=== PATIENT | female | born 1970 | race Caucasian/White ===

== ENCOUNTER 2023-09-05 22:54 | Emergency (ER) | payer BC, SELFPAY ==
[2023-09-05] MEDS ORDERED: ASPIRIN 81 MG CHEWABLE TABLET ONE (23:33)
[2023-09-05 23:53] LABS: Absolute Lymphocytes (CBC) 2.7 K/uL (0.7-4.9); Hematocrit 45.2 % (36.0-45.0); Lymphocytes % 34.7 % (15.3-44.8); MPV 8.7 fL (7.6-11.3); Platelets 159 thou/uL (152-406); Protime INR 1.04; RBC Red Blood Cell Count 5.02 M/uL (3.86-4.86)
[2023-09-05 23:57] LABS: ALT/SGPT 94 U/L (13-56); AST/SGOT 50 U/L (15-37); Albumin 3.4 g/dL (3.4-5.0); Alkaline Phosphatase 76 U/L (45-117); BUN Blood Urea Nitrogen 14 mg/dL (7-18); Bicarbonate 25 mEq/L (21-32); Bilirubin Total 0.3 mg/dL (0.2-1.0); Glomerular Filtration Rate 90 ml/min (=/>90); Glucose Level 144 mg/dL (74-106); Magnesium 2.3 mg/dL (1.6-2.4); NT PRO-BNP 20 pg/mL (<125); Potassium 3.4 mEq/L (3.5-5.1); Protein, Total 7.5 g/dL (6.4-8.2); Sodium Level 139 mEq/L (136-145); Troponin High Sensitivity 5.1 pg/mL (<58.9)
[2023-09-05 23:58] LABS: Bilirubin Direct < 0.1 mg/dL (0-0.2); Bilirubin Indirect, Calculated ND mg/dL (0.2-0.8)
--- NOTE | 2023-09-06 05:52 | EDPHYS ---
Physician Documentation [facility] Name: Elva Espitia Age: 53 yrs Sex: Female : 1970 Arrival Date: 09/05/2023 Time: 22:54 Bed 2 Private MD: ED Physician Oleg Lazcano HPI: 09/05 23:00 This 53 yrs old Female presents to ER via Unassigned with complaints of Chest Pain. cp 23:00 The patient or guardian reports chest pain that is located primarily in the anterior cp chest wall, bilaterally. 23:00 Onset: 45 minute(s) ago. The pain radiates to the left arm. cp Historical: - Allergies: 23:12 No Known Allergies; jb4 - PMHx: 23:12 Asthma; jb4 - PSHx: 23:12 Partial Histerectomy; jb4 - Immunization history:: Adult Immunizations not up to date. - Social history:: Smoking status: Patient reports the use of cigarette tobacco products, smokes one-half pack cigarettes per day, Patient uses alcohol, occasionally. ROS: 23:05 Constitutional: Negative for body aches, chills, fever, poor PO intake, cp 23:05 Cardiovascular: Positive for chest pain, cp 23:05 Respiratory: Negative for cough, shortness of breath, wheezing, cp 23:05 Constitutional: Negative for fever, chills, and weight loss, cp Exam: 23:08 ECG was reviewed by the Attending Physician. cp 23:10 Constitutional: The patient appears in no acute distress, alert, awake, cp non-diaphoretic, non-toxic, well developed, well nourished, overweight 23:10 Head/Face: Normocephalic, atraumatic. cp 23:10 Eyes: Periorbital structures: appear normal, Conjunctiva: normal, no exudate, no injection, Sclera: no appreciated abnormality, Lids and lashes: appear normal, bilaterally, 23:10 ENT: External ear(s): are unremarkable, Nose: is normal, Mouth: Lips: moist, Oral mucosa: pink and intact, moist, Posterior pharynx: Airway: no evidence of obstruction, patent, 23:10 Chest/axilla: Inspection: normal, 23:10 Cardiovascular: Rate: normal, Rhythm: regular, 23:10 Respiratory: the patient does not display signs of respiratory distress, Respirations: normal, no use of accessory muscles, no retractions, labored breathing, is not present, Breath sounds: are clear throughout, no decreased breath sounds, no stridor, no wheezing, 23:10 Abdomen/GI: Inspection: abdomen appears normal, Bowel sounds: active, all quadrants, Palpation: soft, in all quadrants, mild abdominal tenderness, in the epigastric area and right upper quadrant, rebound tenderness, is not appreciated, involuntary guarding, is not appreciated, 23:10 Back: CVA tenderness, is absent, 23:10 Neuro: Orientation: to person, place \T\ time. Mentation: is normal, Motor: moves all fours, strength is normal, Sensation: is normal, Vital Signs: 23:00 BP 117 / 75; Pulse 70; Resp 17 S; Pulse Ox 98% on R/A; jw7 23:10 BP 117 / 75; Pulse 79; Resp 20; Temp 98.9(O); Pulse Ox 97% on R/A; Weight 95.25 kg; jb4 Height 5 ft. 6 in. ; Pain 01/03; 09/06 01:00 BP 106 / 82; Pulse 74; Resp 20 S; Pulse Ox 95% on R/A; jw7 03:00 BP 99 / 67; Pulse 76; Resp 15 S; Pulse Ox 97% on R/A; jw7 05:00 BP 131 / 85; Pulse 79; Resp 20; Pulse Ox 96% on R/A; lg3 05:52 BP 122 / 77; Pulse 97; Resp 20; Pulse Ox 98% on R/A; 7 09/05 23:10 Body Mass Index 33.89 (95.25 kg, 167.64 cm) [facility] 23:10 Pain Scale: Adult jb4 MDM: 09/05 22:57 Patient medically screened. cp 09/06 05:32 ED course: US - COMPARISON: No relevant prior studies available. FINDINGS: Liver: Liver sp4 is diffusely echogenic which can be seen with hepatic steatosis. Gallbladder: No gallstones. No gallbladder wall thickening. No pericholecystic fluid. Common bile duct: Common bile duct is normal. No stones. No dilation. IMPRESSION: 1. Liver is diffusely echogenic which can be seen with hepatic steatosis. 2. No gallstones. No gallbladder wall thickening. No pericholecystic fluid. . ED course: CXR - COMPARISON(S): None. FINDINGS: Soft tissue attenuation and beam underpenetration limit assessment. Support devices: Overlying leads. Lungs/pleura: No consolidation, pleural effusion, or pneumothorax. Heart and mediastinum: Cardiomediastinal silhouette has normal size and configuration. Other: No acute osseous findings. IMPRESSION: No acute cardiopulmonary findings. Electronically signed by: Marc Guerrero MD. 05:33 Differential diagnosis: chest wall pain, cholecystitis, Cholelithiasis costochondritis, sp4 esophagitis. The patient was given aspirin in the Emergency Department. Data reviewed: vital signs, nurses notes, lab test result(s), EKG, radiologic studies, plain films, ultrasound. 09/05 23:03 Order name: Basic Metabolic Panel; Complete Time: 00:57 09/06 00:57 Interpretation: Normal except: K 3.4; GLUC 144. 09/05 23:03 Order name: CBC with Diff; Complete Time: 00:57 09/06 00:58 Interpretation: Normal except: RBC 5.02; HCT 45.2. 09/05 23:03 Order name: LFT's; Complete Time: 00:57 09/06 00:58 Interpretation: Normal except: AST 50; ALT 94; GLOB 4.1; A/G 0.8. 09/05 23:03 Order name: Magnesium; Complete Time: 00:57 09/05 23:03 Order name: NT PRO-BNP; Complete Time: 00:57 09/05 23:03 Order name: PT-INR; Complete Time: 00:57 09/05 23:03 Order name: Troponin HS; Complete Time: 00:57 09/06 00:58 Interpretation: Reviewed. 09/06 02:44 Order name: Troponin HS; Complete Time: 05:31 09/05 23:03 Order name: XRAY Chest (1 view) 09/06 01:20 Order name: US Abdomen Limited: gallbladder 09/05 23:03 Order name: EKG; Complete Time: 23:03 09/05 23:03 Order name: Cardiac monitoring; Complete Time: 23:14 09/05 23:03 Order name: EKG - Nurse/Tech; Complete Time: 23:14 09/05 23:03 Order name: IV Saline Lock; Complete Time: 23:21 cp 09/05 23:03 Order name: Labs collected and sent; Complete Time: 23:21 cp 09/05 23:03 Order name: O2 Per Protocol; Complete Time: 23:14 cp 09/05 23:03 Order name: O2 Sat Monitoring; Complete Time: 23:14 cp EC/11 23:08 Rate is 82 beats/min. Rhythm is regular. [place] interval is normal. QRS interval is normal. cp QT interval is normal. T waves are Inverted in lead aVR. Interpreted by me. Reviewed by me. Administered Medications: 23:21 Drug: Aspirin PO Chewable Tablet 324 mg PO once; 81 mg tablets x 4 Route: PO; jw7 09/06 02:26 Follow up: Response: No adverse reaction jw7 06:11 Drug: Cyclobenzaprine PO 10 mg PO once Route: PO; jw7 06:11 Follow up: Response: No adverse reaction jw7 06:11 Drug: predniSONE PO 60 mg PO once Route: PO; jw7 06:11 Follow up: Response: No adverse reaction jw7 06:11 Drug: Ibuprofen PO 800 mg PO once Route: PO; jw7 06:11 Follow up: Response: No adverse reaction jw7 Disposition: 01:09 Co-signature as Attending Physician, Oleg Lazcano MD I agree with the assessment sp4 and plan of care. I reviewed the patient's care provided by the Advanced Practice Provider and agree with the diagnosis and treatment plan. Disposition Summary: 09/06/23 05:51 Discharge Ordered Problem: new sp4 Symptoms: have improved sp4 Condition: Stable sp4 Diagnosis - Chest pain, unspecified sp4 Followup: sp4 - With: Alireza Tijerina DO - When: 7 - 10 days - Reason: Recheck today's complaints Discharge Instructions: - Discharge Summary Sheet sp4 - Nonspecific Chest Pain, Adult, [id number] sp4 Forms: - Work release form jw7 - Patient Portal Instructions sp4 Prescriptions: - Ibuprofen 800 mg Oral Tablet - take 1 tablet ORAL route every 8 hours As needed take with food; 30 tablet; sp4 Refills: 0, Product Selection Permitted - Cyclobenzaprine 10 mg Oral Tablet - take 1 tablet ORAL route every 8 hours As needed; 30 tablet; Refills: 0, sp4 Product Selection Permitted - Prednisone 20 mg Oral Tablet - take 2 tablets ORAL route once daily for 5 days; 10 tablet; Refills: 0, Product sp4 Selection Permitted Signatures: Dispatcher [employer] EDLong Dowd PA PA cp Bryson, James, RN RN jb4 Shala Taveras RN RN jw7 Oleg Lazcano MD MD sp4 Corrections: (The following items were deleted from the chart) 18:19 05:39 Constitutional: Negative for fever, chills, and weight loss, sp4 cp
--- NOTE | 2023-09-06 05:52 | ER ---
Nurse's Notes [facility] Name: Elva Espitia Age: 53 yrs Sex: Female : 1970 Arrival Date: 09/05/2023 Time: 22:54 Bed 2 Private MD: Diagnosis: Chest pain, unspecified Presentation: 09/05 23:10 Chief complaint: Patient states: I started having chest pain about 45 minutes prior to jb4 arrival. It feels like I don't have enough room for my organs in my chest. The pain radiates to my back. It is currently a 4/10. Coronavirus screen: At this time, the client does not indicate any symptoms associated with coronavirus-19. Ebola Screen: No symptoms or risks identified at this time. Initial Sepsis Screen: Does the patient meet any 2 criteria? No. Patient's initial sepsis screen is negative. Does the patient have a suspected source of infection? No. Patient's initial sepsis screen is negative. Risk Assessment: Do you want to hurt yourself or someone else? Patient reports no desire to harm self or others. Onset of symptoms was September 05, 2023. Transition of care: patient was not received from another setting of care. 23:10 Method Of Arrival: Wheelchair jb4 23:10 Acuity: JENNIFER 3 jb4 Triage Assessment: 23:22 General: Appears in no apparent distress. comfortable, Behavior is calm, cooperative. jw7 Pain: Complains of pain in chest Pain radiates to back Pain currently is 4 out of 10 on a pain scale. Quality of pain is described as throbbing, pulsating, Pain began pt stated "it's been going on and off for years" Is continuous, Noted to be resistant to movement. EENT: No deficits noted. No signs and/or symptoms were reported regarding the EENT system. Neuro: Martino Agitation-Sedation Scale (RASS): 0 - Alert and Calm. Cardiovascular: Heart tones S1 S2 present Capillary refill < 3 seconds Clubbing of nail beds is absent JVD is absent Patient's skin is warm and dry. Rhythm is sinus rhythm. Respiratory: Airway is patent Trachea midline Respiratory effort is even, unlabored, Respiratory pattern is regular, symmetrical, Breath sounds are clear bilaterally. GI: No deficits noted. No signs and/or symptoms were reported involving the gastrointestinal system. : No deficits noted. No signs and/or symptoms were reported regarding the genitourinary system. Derm: No deficits noted. No signs and/or symptoms reported regarding the dermatologic system. Musculoskeletal: No deficits noted. No signs and/or symptoms reported regarding the musculoskeletal system. Historical: - Allergies: 23:12 No Known Allergies; jb4 - PMHx: 23:12 Asthma; jb4 - PSHx: 23:12 Partial Histerectomy; jb4 - Immunization history:: Adult Immunizations not up to date. - Social history:: Smoking status: Patient reports the use of cigarette tobacco products, smokes one-half pack cigarettes per day, Patient uses alcohol, occasionally. Screenin:22 [facility] ED Fall Risk Assessment (Adult) History of falling in the last 3 months, jw7 including since admission No falls in past 3 months (0 pts) Score/Fall Risk Level 0 - 2 = Low Risk Oriented to surroundings, Maintained a safe environment. Abuse screen: Denies threats or abuse. Denies injuries from another. Nutritional screening: No deficits noted. Tuberculosis screening: No symptoms or risk factors identified. Assessment: 23:25 General: see triage assessment. jw7 09/06 00:30 Reassessment: Patient appears in no apparent distress at this time. No changes from 7 previously documented assessment. Patient and/or family updated on plan of care and expected duration. Pain level reassessed. Patient is alert, oriented x 3, equal unlabored respirations, skin warm/dry/pink. 01:30 Reassessment: Patient appears in no apparent distress at this time. Patient and/or jw7 family updated on plan of care and expected duration. Pain level reassessed. Patient is alert, oriented x 3, equal unlabored respirations, skin warm/dry/pink. Patient states feeling better. 01:30 Pain: Denies pain. jw7 02:26 Reassessment: Patient appears in no apparent distress at this time. Patient and/or [facility] family updated on plan of care and expected duration. Pain level reassessed. Patient is alert, oriented x 3, equal unlabored respirations, skin warm/dry/pink. 03:22 Reassessment: Patient appears in no apparent distress at this time. No changes from jw7 previously documented assessment. Patient and/or family updated on plan of care and expected duration. Pain level reassessed. Patient is alert, oriented x 3, equal unlabored respirations, skin warm/dry/pink. 04:30 Reassessment: Patient appears in no apparent distress at this time. No changes from jw7 previously documented assessment. Patient and/or family updated on plan of care and expected duration. Pain level reassessed. Patient is alert, oriented x 3, equal unlabored respirations, skin warm/dry/pink. 05:00 Reassessment: Patient appears in no apparent distress at this time. No changes from lg3 previously documented assessment. Patient and/or family updated on plan of care and expected duration. Pain level reassessed. Patient is alert, oriented x 3, equal unlabored respirations, skin warm/dry/pink. Patient states feeling better. 06:00 Reassessment: Patient appears in no apparent distress at this time. Patient and/or jw7 family updated on plan of care and expected duration. Pain level reassessed. Patient is alert, oriented x 3, equal unlabored respirations, skin warm/dry/pink. Pain: Denies pain. Vital Signs: 09/05 23:00 BP 117 / 75; Pulse 70; Resp 17 S; Pulse Ox 98% on R/A; jw7 23:10 BP 117 / 75; Pulse 79; Resp 20; Temp 98.9(O); Pulse Ox 97% on R/A; Weight 95.25 kg; jb4 Height 5 ft. 6 in. ; Pain 01/03; 09/06 01:00 BP 106 / 82; Pulse 74; Resp 20 S; Pulse Ox 95% on R/A; jw7 03:00 BP 99 / 67; Pulse 76; Resp 15 S; Pulse Ox 97% on R/A; jw7 05:00 BP 131 / 85; Pulse 79; Resp 20; Pulse Ox 96% on R/A; lg3 05:52 BP 122 / 77; Pulse 97; Resp 20; Pulse Ox 98% on R/A; jw7 09/05 23:10 Body Mass Index 33.89 (95.25 kg, 167.64 cm) jb4 23:10 Pain Scale: Adult jb4 ED Course: 09/05 22:55 Patient arrived in ED. gm2 22:57 Long Metz PA is PHCP. cp 22:57 Oleg Lazcano MD is Attending Physician. cp 23:12 Triage completed. jb4 23:12 Arm band placed on right wrist. EKG completed in triage. Results shown to MD. jb4 23:22 Client placed on continuous cardiac and pulse oximetry monitoring. NIBP monitoring jw7 applied. 23:22 Patient has correct armband on for positive identification. Placed in gown. Bed in low jw7 position. Call light in reach. Side rails up X2. 23:22 Patient maintains SpO2 saturation greater than 95% on room air. jw7 23:33 XRAY Chest (1 view) In Process Unspecified. EDMS 09/06 02:03 US Abdomen Limited: gallbladder In Process Unspecified. EDMS 03:02 Troponin HS Sent. ls5 05:50 Alireza Tijerina DO is Referral Physician. sp4 05:53 No provider procedures requiring assistance completed. IV discontinued, intact, jw7 bleeding controlled, No redness/swelling at site. Pressure dressing applied. 06:12 Provided Education on: discharge instructions. jw7 Administered Medications: 09/05 23:21 Drug: Aspirin PO Chewable Tablet 324 mg PO once; 81 mg tablets x 4 Route: PO; jw7 12 02:26 Follow up: Response: No adverse reaction jw7 06:11 Drug: Cyclobenzaprine PO 10 mg PO once Route: PO; jw7 06:11 Follow up: Response: No adverse reaction jw7 06:11 Drug: predniSONE PO 60 mg PO once Route: PO; jw7 06:11 Follow up: Response: No adverse reaction jw7 06:11 Drug: Ibuprofen PO 800 mg PO once Route: PO; jw7 06:11 Follow up: Response: No adverse reaction jw7 Medication: 06:12 VIS not applicable for this client. jw7 Outcome: 05:51 Discharge ordered by . sp4 05:53 Discharged to home ambulatory, jw7 05:53 Condition: stable 05:53 Discharge instructions given to patient, Instructed on discharge instructions, follow up and referral plans. medication usage, Demonstrated understanding of instructions, follow-up care, medications, Prescriptions given X 3, 06:12 Patient left the ED. jw7 Signatures: Dispatcher [employer] EDSC Long Metz PA PA cp Bryson, James RN RN jb4 Sheila Foster RN RN austin3 Shala Taveras RN RN jw7 Esvin Hinojosa ls5 Oleg Lazcano MD MD sp4 Marianne Fiore gm2 Corrections: (The following items were deleted from the chart) 02:27 01:30 Reassessment: Patient appears in no apparent distress at this time. No changes jw7 from previously documented assessment. Patient and/or family updated on plan of care and expected duration. Pain level reassessed. Patient is alert, oriented x 3, equal unlabored respirations, skin warm/dry/pink. jw7
[2023-09-06] MEDS ORDERED: predniSONE 20 MG TAB ONE (06:14)
[2023-09-06] MEDS ORDERED: IBUPROFEN 400 MG TAB ONE (06:14)
[2023-09-06] MEDS ORDERED: CYCLOBENZAPRINE 10 MG TAB ONE (06:14)
[2023-09-06 06:19] VITALS: TEMP 98.9
[2023-09-06 06:26] VITALS: BP 122/77; O2SAT 98
--- NOTE | 2023-09-06 13:40 | EKG ---
Test Date: 2023-09-05 Test Time: 23:02:07 Musical String Maker: MONE MEASUREMENT RESULTS: Intervals: Rate: 82 ID: [id number] QRSD: 78 QT: 386 QTc: 450 Pilgrim: P: 68 ID: [id number] QRS: 56 T: 62 INTERPRETIVE STATEMENTS: Normal sinus rhythm Normal ECG No previous ECG available for comparison Electronically Signed On 09-06-23 13:38:48 DISTRICT CLAIMS MANAGER by Grady Bar
--- NOTE | 2023-09-06 13:57 | RAD REPORT ---
EXAM DESCRIPTION: XR CHEST 1 VIEW CLINICAL HISTORY: Female, 53 years old, CHEST PAIN TECHNIQUE: 1 view COMPARISON: None. FINDINGS: Soft tissue attenuation and beam underpenetration limit assessment. Support devices: Overlying leads. Lungs/pleura: No consolidation, pleural effusion, or pneumothorax. Heart and mediastinum: Cardiomediastinal silhouette has normal size and configuration. Other: No acute osseous findings. IMPRESSION: No acute cardiopulmonary findings. Electronically signed by: Marc Guerrero MD 09/06/2023 12:01 AM PROCESS DEVELOPER Due to temporary technical issues with the PACS/Fluency reporting system, reports are being signed by the in house radiologists without review as a courtesy to insure prompt reporting. The interpreting radiologist is fully responsible for the content of the report.
--- NOTE | 2023-09-06 21:30 | RAD REPORT ---
EXAM DESCRIPTION: US Abdomen Limited, Gallbladder CLINICAL HISTORY: The patient is 53 years old and is Female; chest pain TECHNIQUE: Real-time ultrasound of the right upper quadrant with image documentation. COMPARISON: No relevant prior studies available. FINDINGS: Liver: Liver is diffusely echogenic which can be seen with hepatic steatosis. Gallbladder: No gallstones. No gallbladder wall thickening. No pericholecystic fluid. Common bile duct: Common bile duct is normal. No stones. No dilation. IMPRESSION: 1. Liver is diffusely echogenic which can be seen with hepatic steatosis. 2. No gallstones. No gallbladder wall thickening. No pericholecystic fluid. Electronically signed by: Herbert Sanabria MD 09/06/2023 02:49 AM WEAPONS SYSTEM INSTRUMENT MECHANIC Due to temporary technical issues with the PACS/Fluency reporting system, reports are being signed by the in house radiologists without review as a courtesy to insure prompt reporting. The interpreting radiologist is fully responsible for the content of the report.
== END 2023-09-06 06:12 | disposition home or self-care (01) ==
LOC: ER 22:54
DX: R07.89 Other chest pain (principal); F17.210 Nicotine dependence, cigarettes, uncomplicated
CPT/HCPCS: 93005; 85025; 80048; 36415; 83735; 85610; 80076; 84484 ×2; 83880; 71045; 76705; 99284; J7512